=== PATIENT | male | born 1970 | race Two or more races ===

== ENCOUNTER 2021-07-29 10:22 | Inpatient (IN) | payer SELFPAY ==
[2021-07-29] MEDS ORDERED: ACETAMINOPHEN 1000 MG/100 ML BAG IVPB ONE (10:41)
[2021-07-29] MEDS ORDERED: SODIUM CHLORIDE 1,000 ML IV STA (10:41)
[2021-07-29] MEDS ORDERED: ACETAMINOPHEN INJECTION 100 ML IVPB ONE (10:55)
[2021-07-29 11:37] LABS: INR 1.14 (0.83-1.09); PROTHROMBIN TIME (PATIENT) 13.1 SEC (9.7-13.0)
[2021-07-29 11:40] LABS: ACTIVATED PTT 31.6 SECONDS (25.2-36.5)
[2021-07-29 11:43] LABS: ALBUMIN 3.5 g/dl (3.4-5.0); BILIRUBIN,TOTAL 1.9 mg/dl (0.2-1); CREATININE 0.7 mg/dl (0.55-1.3); MAGNESIUM 1.5 mg/dL (1.8-2.4); PHOSPHOROUS 2.9 mg/dl (2.5-4.9); TOT PROT 6.6 g/dl (6.4-8.2)
[2021-07-29 11:59] LABS: URINE MUCUS 1+
[2021-07-29 12:37] LABS: HEMATOCRIT 49.2 % (35.4-49); HEMOGLOBIN 17.3 G/dL (11.7-16.9); MCH 30.9 pg (25.7-33.7); MCHC 35.1 g/dl (32.0-35.9); MEAN PLT VOLUME 9.3 fl (7.5-11.1); PLATELET COUNT 163.5 10^3/uL (134-434); RBC 5.59 10^6/uL (4.00-5.60); RDW 13.3 % (11.9-15.9); WHITE BLOOD COUNT 13.1 10^3/uL (4.0-10.8)
[2021-07-29] MEDS ORDERED: PIPERACILLIN/TAZOB 4.5 GM 4.5 GM in DEXTROSE 5%-WATER 100 ML IVPB ONE (12:53)
[2021-07-29] MEDS ORDERED: PIPERACILLIN/TAZOBACTAM 4.5 GM VIAL IVPB ONE (12:55)
[2021-07-29] MEDS ORDERED: SODIUM CHLORIDE 0.9% 500 ML INFUS.BAG IV ONE (13:12)
[2021-07-29] MEDS ORDERED: MAGNESIUM SULF 50% (8.12 MEQ/2 ML-1 GM VIAL) IVPB ONE (13:43)
[2021-07-29] MEDS ORDERED: MAGNESIUM 1GM/D5W - 2 GM/200 ML IVPB IVPB ONE (13:59)
[2021-07-29] MEDS ORDERED: MAGNESIUM SULFATE IN WATER 2 GM/50 ML IVPB IVPB ONE (14:00)
[2021-07-29] MEDS: INSULIN (NOVOLOG) ASPART 100 UNITS/ML 10ML VIAL SQ SCH ×3 (14:34→21:08)
[2021-07-29] MEDS ORDERED: INSULIN (NOVOLOG) ASPART 100 UNITS/ML 10ML VIAL ONE (14:36)
[2021-07-29 14:37] LABS: PLATELET ESTIMATE ADEQUATE
[2021-07-29 16:29] VITALS: BMI 29.7
[2021-07-29] MEDS: SODIUM CHLORIDE 1,000 ML IV SCH (17:47)
[2021-07-29] MEDS ORDERED: PIPERACILLIN/TAZOBACTAM 3.375 GM VIAL IVPB ONE (20:57)
[2021-07-29] MEDS ORDERED: SODIUM CHLORIDE 50 ML IVPB ONE (20:57)
[2021-07-29] MEDS ORDERED: PIPERACILLIN/TAZOB 3.375 GM 3.375 GM in DEXTROSE 5%-WATER - 50 ML IVPB SCH (21:00)
[2021-07-29] MEDS: PIPERACILLIN/TAZOB 3.375 GM 3.375 GM in SODIUM CHLORIDE 50 ML IVPB SCH (21:07)
[2021-07-30] MEDS ORDERED: PIPERACILLIN/TAZOBACTAM 3.375 GM VIAL IVPB ONE ×3 (05:10→20:53)
[2021-07-30] MEDS ORDERED: SODIUM CHLORIDE 50 ML IVPB ONE ×2 (05:10→12:39)
[2021-07-30] MEDS: PIPERACILLIN/TAZOB 3.375 GM 3.375 GM in SODIUM CHLORIDE 50 ML IVPB SCH ×2 (05:46→12:53)
[2021-07-30] MEDS: INSULIN (NOVOLOG) ASPART 100 UNITS/ML 10ML VIAL SQ SCH ×4 (06:05→22:07)
[2021-07-30 08:19] LABS: BILIRUBIN,TOTAL 1.8 mg/dl (0.2-1); CALCIUM 8.7 mg/dl (8.5-10); CREATININE 0.7 mg/dl (0.55-1.3); MAGNESIUM 1.6 mg/dL (1.8-2.4)
[2021-07-30 08:33] LABS: HEMATOCRIT 46.8 % (35.4-49); HEMOGLOBIN 16.4 G/dL (11.7-16.9); MCHC 34.9 g/dl (32.0-35.9); MEAN CELL VOLUME 88.6 fl (80-96); PLATELET COUNT 175.4 10^3/uL (134-434); RBC 5.28 10^6/uL (4.00-5.60); RDW 13.5 % (11.9-15.9); WHITE BLOOD COUNT 9.5 10^3/uL (4.0-10.8)
[2021-07-30] MEDS ORDERED: ATORVASTATIN CA 20 MG PO SCH (10:00)
[2021-07-30] MEDS ORDERED: MAGNESIUM SULF 50% (8.12 MEQ/2 ML-1 GM VIAL) IVPB ONE (12:12)
[2021-07-30] MEDS ORDERED: MAGNESIUM SULFATE IN WATER 2 GM/50 ML IVPB IVPB ONE (12:30)
[2021-07-30] MEDS: SODIUM CHLORIDE 1,000 ML IV SCH (16:31)
[2021-07-30] MEDS: ENOXAPARIN NA (PORCINE) 40 MG/0.4 ML DISP.SYRIN SQ SCH (16:31)
[2021-07-30] MEDS ORDERED: DEXTROSE 5%-WATER - 50 ML IVPB ONE (20:53)
[2021-07-30] MEDS: ATORVASTATIN CA 20 MG TABLET (FP) PO SCH (21:54)
[2021-07-30] MEDS: PIPERACILLIN/TAZOB 3.375 GM 3.375 GM in DEXTROSE 5%-WATER - 50 ML IVPB SCH (21:54)
[2021-07-31] MEDS: PIPERACILLIN/TAZOB 3.375 GM 3.375 GM in DEXTROSE 5%-WATER - 50 ML IVPB SCH ×3 (05:36→21:15)
[2021-07-31] MEDS ORDERED: DEXTROSE 5%-WATER - 50 ML IVPB ONE ×3 (06:15→20:33)
[2021-07-31] MEDS ORDERED: PIPERACILLIN/TAZOBACTAM 3.375 GM VIAL IVPB ONE ×3 (06:15→20:33)
[2021-07-31] MEDS: INSULIN (NOVOLOG) ASPART 100 UNITS/ML 10ML VIAL SQ SCH ×4 (06:55→21:15)
[2021-07-31 08:36] LABS: BILIRUBIN,TOTAL 1.6 mg/dl (0.2-1); CALCIUM 8.7 mg/dl (8.5-10); CREATININE 0.8 mg/dl (0.55-1.3); MAGNESIUM 1.6 mg/dL (1.8-2.4); TOT PROT 6.1 g/dl (6.4-8.2)
[2021-07-31] MEDS: ENOXAPARIN NA (PORCINE) 40 MG/0.4 ML DISP.SYRIN SQ SCH (09:50)
[2021-07-31 10:03] LABS: HEMATOCRIT 46.2 % (35.4-49); HEMOGLOBIN 16.4 G/dL (11.7-16.9); MCH 31.2 pg (25.7-33.7); MCHC 35.4 g/dl (32.0-35.9); MEAN CELL VOLUME 88.1 fl (80-96); MEAN PLT VOLUME 8.9 fl (7.5-11.1); RBC 5.24 10^6/uL (4.00-5.60); RDW 13.6 % (11.9-15.9); WHITE BLOOD COUNT 8.9 10^3/uL (4.0-10.8)
[2021-07-31] MEDS ORDERED: MAGNESIUM SULF 50% (8.12 MEQ/2 ML-1 GM VIAL) IVPB ONE (15:25)
[2021-07-31] MEDS: ATORVASTATIN CA 20 MG TABLET (FP) PO SCH (21:15)
[2021-08-01] MEDS ORDERED: DEXTROSE 5%-WATER - 50 ML IVPB ONE ×2 (05:55→13:39)
[2021-08-01] MEDS ORDERED: PIPERACILLIN/TAZOBACTAM 3.375 GM VIAL IVPB ONE ×2 (05:55→13:39)
[2021-08-01] MEDS: PIPERACILLIN/TAZOB 3.375 GM 3.375 GM in DEXTROSE 5%-WATER - 50 ML IVPB SCH (06:03)
[2021-08-01] MEDS: INSULIN (NOVOLOG) ASPART 100 UNITS/ML 10ML VIAL SQ SCH (07:03)
[2021-08-01 08:14] LABS: BILIRUBIN,TOTAL 1.3 mg/dl (0.2-1); CALCIUM 8.9 mg/dl (8.5-10); CREATININE 0.7 mg/dl (0.55-1.3); MAGNESIUM 1.7 mg/dL (1.8-2.4); TOT PROT 6.1 g/dl (6.4-8.2)
[2021-08-01 08:16] LABS: HEMATOCRIT 47.5 % (35.4-49); HEMOGLOBIN 16.8 G/dL (11.7-16.9); MCH 31.3 pg (25.7-33.7); MCHC 35.4 g/dl (32.0-35.9); MEAN CELL VOLUME 88.4 fl (80-96); MEAN PLT VOLUME 8.6 fl (7.5-11.1); PLATELET COUNT 194.7 10^3/uL (134-434); RBC 5.37 10^6/uL (4.00-5.60); RDW 13.6 % (11.9-15.9); WHITE BLOOD COUNT 8.4 10^3/uL (4.0-10.8)
[2021-08-01] MEDS: ENOXAPARIN NA (PORCINE) 40 MG/0.4 ML DISP.SYRIN SQ SCH (10:35)
[2021-08-01 13:58] VITALS: BP 133/82; PULSE 85; TEMP 98.7
== END 2021-08-01 15:21 | disposition home or self-care (01) | DRG 244 ==
LOC: FER 10:22 → FM/S 13:11
PROVIDERS: ADMIT Internal Medicine; ATTEND Nurse Practitioner Acute Care
DX: K57.20 Diverticulitis of large intestine with perforation and abscess without bleeding (principal); E11.9 Type 2 diabetes mellitus without complications; E78.5 Hyperlipidemia, unspecified; E83.42 Hypomagnesemia; R63.0 Anorexia; D72.829 Elevated white blood cell count, unspecified; E66.9 Obesity, unspecified; Z68.29 Body mass index [BMI] 29.0-29.9, adult
CPT/HCPCS: 36415; 74177-TC; 80053; 81003; 81015; 82962; 83690; 83735; 84100; 85025; 85610; 85730; 86850; 86900; 86901; 87086; 93005; 99285-25; C9803-CS; Q9967; U0003; U0005